=== PATIENT | male | born 1985 | race Hispanic/Latino ===

== ENCOUNTER 2016-12-09 19:20 | Emergency (ER) | payer OTHER ==
[2016-12-09 19:25] VITALS: BP 118/66; PULSE 78; RESP 18; TEMP 98.6; O2SAT 99
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
== END 2016-12-09 20:32 | disposition home or self-care (01) ==
LOC: H.ER 19:20
DX: T15.01XA Foreign body in cornea, right eye, initial encounter (principal)

== ENCOUNTER 2017-11-02 22:10 | Observation (INO) | payer OTHER ==
--- NOTE | 2017-11-02 22:53 | ED PDOC ---
Lower Extremity Pain/Injury <Sly Marsh - Last Filed: 11/03/17 06:32> Chief Complaint (Provider): Right Ankle Injury History Per: Patient History/Exam Limitations: no limitations Onset/Duration Of Symptoms: Mins (just SENIOR IT ASSISTANT) Pain Scale Rating Of: 10 Additional Complaint(s): Brodie Desir is a 32 year old male, with no significant past medical history , presents to the emergency department for evaluation of right ankle pain onset just prior to arrival. Patient reports he was playing basketball when he rolled his right ankle over the basketball, he noticed his momentum was going forward but his leg got stuck behind him when he fell. He reports that he felt a snap and heard a pop to the affected area. He rates the pain a 10/10 and states it's localized to the ankle. He took no medications prior to arrival. No prior ankle injury. He denies any head injury, LOC or other complaints at this time. PMD: Halle Pope <Laura More - Last Filed: 11/06/17 03:01> Time Seen by Provider: 11/02/17 22:18 Chief Complaint (Nursing): Lower Extremity Problem/Injury Past Medical History Vital Signs: Last Vital Signs Temp 98.9 F 11/02/17 23:16 Pulse 73 11/03/17 00:48 Resp 10 L 11/03/17 00:48 BP 132/60 11/03/17 00:48 Pulse Ox 98 11/03/17 06:19 <Sly Marsh - Last Filed: 11/03/17 06:32> Reviewed: Historical Data, Nursing Documentation, Vital Signs Vital Signs: Last Vital Signs Temp 101.4 F H 11/02/17 22:14 Pulse 66 11/02/17 22:14 Resp 18 11/02/17 22:14 BP 131/71 11/02/17 22:14 Pulse Ox 98 11/02/17 22:14 - Medical History PMH: No Chronic Diseases - Surgical History Surgical History: No Surg Hx - Family History Family History: States: Unknown Family Hx - Social History Current smoker - smoking cessation education provided: Yes (once a month) Alcohol: Social Drugs: Cannabis (social) <Laura More - Last Filed: 11/06/17 03:01> - Home Medications Home Medications: Ambulatory Orders Medication Instructions Recorded Polymyxin/Trimethoprim Sulfate 1 - 2 drop OD BID #1 bottle 12/09/16 [Polytrim Ophth Soln] Ibuprofen [Motrin Tab] 800 mg PO Q8 PRN #21 tab 11/03/17 oxyCODONE/Acetaminophen [Percocet 1 ea PO Q6 PRN #12 tab 11/03/17 5/325 mg Tab] - Allergies Allergies/Adverse Reactions: Allergies Allergy/AdvReac Type Severity Reaction Status Date / Time No Known Allergies Allergy Verified 12/09/16 19:22 Review of Systems ROS Statement: Except As Marked, All Systems Reviewed And Found Negative Musculoskeletal: Positive for: Foot Pain (right ankle) <Laura More - Last Filed: 11/06/17 03:01> Physical Exam - Reviewed Nursing Documentation Reviewed: Yes Vital Signs Reviewed: Yes - Physical Exam Comments: GENERAL APPEARANCE: Patient is awake, alert, oriented x 3, in moderate painful distress. SKIN: Warm, dry; (-) cyanosis. CHEST AND RESPIRATORY: (-) rales, (-) rhonchi, (-) wheezes, (-) rub; breath sounds equal bilaterally. Respirations even and nonlabored. HEART AND CARDIOVASCULAR: (-) irregularity LOWER EXTREMITY: Ankle: Large effusion to right ankle with noticeable deformity and faint ecchymosis to anterior, lateral and medial aspects. Diffuse tenderness of the ankle; (+) No ROM (+) superficial abrasion to anterior ankle. Knee, calf and foot: (-) injury and tenderness. No proximal lower leg tenderness. CARDIOVASCULAR: (+) distal pulse. NEUROLOGIC: (+) distal sensation. <Laura More - Last Filed: 11/06/17 03:01> - Laboratory Results Result Diagrams: 11/03/17 12:12 11/03/17 12:12 - ECG O2 Sat by Pulse Oximetry: 98 (RA) Pulse Ox Interpretation: Normal <Laura More - Last Filed: 11/06/17 03:01> Medical Decision Making Medical Decision Making: Time: 22:15 Initial Impression: acute right ankle pain probable fracture +/- Dislocation Initial Plan: --Morphine 2 mg IVP --Zofran Inj 4 mg IVP --Ankle right 3 views routine [RAD] --Reevaluation 2250 Ankle XR: (+) oblique, displaced distal fibula fracture (+) syndesmotic injury ( ?) malalignment of tibia/talus Right Tib/FIb XR ordered. Consult placed to podiatry. Case discussed wit podiatry resident, Teodora Rodriguez, who is agreeable to evaluation in ED. 2305 Tib/Fib XR: (+) oblique, displaced distal fibula fracture. Pending podiatry evaluation. 2315 Podiatry at bedside. See consult note. Repeat temp: 98.9 2345 Consent obtained for conscious sedation to reduce fracture. 0100 Reduction performed by podiatry and splint placed with Argenis FERRARO and ED MD Marsh at bedside. 350mg Propofol used for sedation. Post reduction films demonstrate better alignment of fracture. 0115 Dilaudid 2mg IVP administered. 0245 Lower extremity NV intact with splint in place. Patient sleeping comfortably on re-evaluation. 0500 Patient supplied with crutches and instructed on crutch walking. Patient able to crutch walk through ED however still reporting persistent, uncontrolled pain. Toradol 30mg IVP administered. On exam, patient remains AAOx3; Lungs clear to auscultation, cardiac RRR, repeat neuro exam shows no focal findings. VSS. 0550 Patient offered observation to med/surg for pain management and accepted at this time. Morphine 4mg IVP and Zofran 4mg IVP ordered. Arrangements made for admission for obs med/surg. Consult placed to Dr Andrew, med on-call. [address] Andrew, agreeable to admission at this time. Podiatry made aware of admission at this time. Dr Andrew recommends anesthesiology consult. Case discussed with Dr Wooten, anesthesiology operations manager. ----- Scribe Attestation: Documented by Neftali Dacosta, acting as a scribe for Laura More PA-C. Provider Scribe Attestation: All medical record entries made by the Scribe were at my direction and personally dictated by me. I have reviewed the chart and agree that the record accurately reflects my personal performance of the history, physical exam, medical decision making, and the department course for this patient. I have also personally directed, reviewed, and agree with the discharge instructions and disposition. <Laura More - Last Filed: 11/06/17 03:01> Disposition <Sly Marsh - Last Filed: 11/03/17 06:32> - Patient ED Disposition Is Patient to be Admitted: Yes Counseled Patient/Family Regarding: Studies Performed, Diagnosis, Need For Followup - Disposition Disposition Time: 06:00 - Pt Status Changed To: Hospital Disposition Of: Observation (med/surg) - POA Present On Arrival: Falls Or Trauma <Laura More - Last Filed: 11/06/17 03:01> - Clinical Impression Clinical Impression: Ankle fracture, Ankle pain, Fracture of distal fibula - Disposition Condition: FAIR Anesthesia History/Assessment - Medical History/Assessment Cardiac History: Normal Pulmonary: Normal Renal: Normal Gastrointestinal: Normal Hematological: Normal Endocrine: Normal Neuro History: Normal - Airway Mallampati Classification: II Teeth:: normal dentition - Evaluation Physical Status: P1 Anesthesia Plan: Deep Sedation Pt Evaluated/Appropriate Candidate for Anesthesia Planned: Yes Anesthesia Consent Complete & Signed: Yes <Sly Marsh - Last Filed: 11/03/17 06:32>
--- NOTE | 2017-11-03 00:09 | CP.PCM.CON ---
History of Present Illness - History of Present Illness History of Present Illness: Consult Note for Dr. Vernon: 32 yo male patient, with no significant PMHx, seen and evaluated for right ankle pain. Patient states that he was playing basketball a few hours ago when he was running and rolled his ankle over the basketball. The ankle rolled backwards and he immediately was unable to weightbear; he was then brought to the emergency department. He is currently in 8/10 pain and denies any numbness or paresthesias to the right lower extremity. Patient is accompanied by his dad and girlfriend at bedside. Patient denies N/V/F/SOB/CP. PMHx: Denies PSHx: Denies ALL: NKDA Review of Systems - Review of Systems Review of Systems: As per HPI Past Patient History - Past Social History Smoking Status: Unknown If Ever Smoked - PSYCHIATRIC Hx Substance Use: No - ANESTHESIA Hx Anesthesia: No Meds Home Medications: Home Medication List Medication Instructions Recorded Confirmed Type Ibuprofen [Motrin Tab] 800 mg PO Q8 PRN #21 tab 11/03/17 Rx oxyCODONE/Acetaminophen [Percocet 1 ea PO Q6 PRN #12 tab 11/03/17 Rx 5/325 mg Tab] Allergies/Adverse Reactions: Allergies Allergy/AdvReac Type Severity Reaction Status Date / Time No Known Allergies Allergy Verified 12/09/16 19:22 Physical Exam - Constitutional Appears: Well, Non-toxic - Head Exam Head Exam: ATRAUMATIC, NORMOCEPHALIC - Extremities Exam Additional comments: RLE focused exam: Vascular: DP 2/4, PT 1/4, CFT <3 seconds to all 5 digits, radha-malleolar edema noted to right ankle, TG WNL to RLE Ortho: Gross lateral dislocation of the foot in relation to the ankle joint. Tenderness to palpation circumfrentially to ankle joint. Patient able to wiggle toes Neuro: Gross and protective sensation intact to right lower extremity Derm: Superficial abrasion noted to dorsal aspect of right ankle, no open fracture noted, no clinical signs of infection, no erythema noted, no ecchymosis noted - Neurological Exam Neurological exam: Alert, Oriented x3 - Psychiatric Exam Psychiatric exam: Normal Affect, Normal Mood Results - Vital Signs Recent Vital Signs: Last Vital Signs Temp 98.9 F 11/02/17 23:16 Pulse 66 11/02/17 22:14 Resp 18 11/02/17 22:14 BP 131/71 11/02/17 22:14 Pulse Ox 98 11/02/17 23:52 Assessment & Plan - Assessment and Plan (Free Text) Assessment: 32 yo male patient, with no significant PMHx, seen and evaluated for right dislocated ankle with fibular fracture Plan: Patient seen and evaluated with all questions and concerns addressed Patient plan discussed in detail with Dr. Vernon Right ankle and tib-fib x-rays taken and reviewed; dislocated right ankle with displaced fibular fracture Conscious sedation administered by ER doctor and a closed reduction of the right ankle was performed Post-reduction x-rays taken and reviewed Patient placed in posterior splint and instructed to remain non-weightbearing with crutches Patient instructed to ice and elevate right lower extremity Patient to follow up in Dr. Vernon's office Thank you for the consult and for allowing us to partake in the care of this patient - Date & Time Date: 11/02/17 Time: 22:50
[2017-11-03] MEDS ORDERED: Propofol 10 mg/ml 1,000 MG/100 ML VIAL ONE (00:22)
[2017-11-03] MEDS ORDERED: Propofol 10 mg/ml Inj (20 ML) IV ONE ×3 (00:27→01:15)
[2017-11-03] MEDS ORDERED: Morphine 4 MG/ML VIAL ONE (06:12)
--- NOTE | 2017-11-03 06:44 | CP.PCM.CON ---
History of Present Illness - History of Present Illness History of Present Illness: 32 yo male S/P closed reduction of right ankle fracture/dislocation, still complains of pain despite getting morphine 4mg IV. From PS=8-9/10 down to PS=7/ 10. Past Patient History - Past Social History Alcohol: Social Drugs: Cannabis (social) - PSYCHIATRIC Hx Substance Use: No - ANESTHESIA Hx Anesthesia: No Meds Home Medications: Home Medication List Medication Instructions Recorded Confirmed Type Ibuprofen [Motrin Tab] 800 mg PO Q8 PRN #21 tab 11/03/17 Rx oxyCODONE/Acetaminophen [Percocet 1 ea PO Q6 PRN #12 tab 11/03/17 Rx 5/325 mg Tab] Allergies/Adverse Reactions: Allergies Allergy/AdvReac Type Severity Reaction Status Date / Time No Known Allergies Allergy Verified 12/09/16 19:22 Results - Vital Signs Recent Vital Signs: Last Vital Signs Temp 98.9 F 11/02/17 23:16 Pulse 73 11/03/17 00:48 Resp 10 L 11/03/17 00:48 BP 132/60 11/03/17 00:48 Pulse Ox 98 11/03/17 06:19 Assessment & Plan - Assessment and Plan (Free Text) Assessment: S/P close reduction of right ankle dislocation with distal fibular fracture. Right ankle pain. Plan: Will recommend shifting to oral analgesics like: Percocet 1 tab po Q6H prn for PS=5-7/10 and/or 2 tabs po Q6H prn for PS>7/10. Motrin or Ibuprofen for PS<5/10. Will follow up on patient during admission.
--- NOTE | 2017-11-03 08:29 | RAD ---
Date of service: 11/02/2017 PROCEDURE: Right Ankle Radiographs. HISTORY: basketball injury, joint pain COMPARISON: None FINDINGS: BONES: The talus is subluxed posterior laterally with marked widening of the medial and anterior mortise greater than 1 cm. Small fracture fragments are seen related to the posterior malleolus and there is a spiral fracture of the upper lateral malleolus displaced inferolaterally by 7-8 mm. Talar dome appears intact and unremarkable grossly. JOINTS: As above. SOFT TISSUES: Mild circumferential soft tissue edema is seen surrounding the ankle. OTHER FINDINGS: None. IMPRESSION: Fracture subluxation on the posterior and lateral malleoli with the talus subluxed posterior laterally.
--- NOTE | 2017-11-03 08:31 | RAD ---
Date of service: 11/02/2017 PROCEDURE: Radiographs of the right tibia and fibula. HISTORY: r/o proximal frac COMPARISON: None available TECHNIQUE: Frontal and lateral views obtained. FINDINGS: BONES: The lateral malleolus and posterior malleolar fractures identified possibly the anterior malleolus as well. Please separate right ankle radiograph evaluation also performed 11/02/2017. JOINT SPACES: Unremarkable appearing knee articulation. Please see separate ankle discussion regarding subluxation. OTHER FINDINGS: None. IMPRESSION: Proximal to mid tibia and fibula unremarkable. Distal fibular and tibial fractures as per separate ankle report 11/02/2017 as well as tibiotalar subluxation.
--- NOTE | 2017-11-03 08:34 | RAD ---
Date of service: 11/03/2017 PROCEDURE: Right Ankle Radiographs. HISTORY: right dislocated ankle COMPARISON: None FINDINGS: BONES: Lateral malleolar spiral fracture reduced adequately as well as tibiotalar subluxation. Medial ankle mortise reduced but still somewhat widened to 8 mm. JOINTS: As above. SOFT TISSUES: Moderate circumferential soft tissue edema. OTHER FINDINGS: None. IMPRESSION: Reduction in prominent subluxation at the tibiotalar joint with significant residual widening of the medial mortise up to 8 mm. Spiral fracture lateral malleolus reduced. Minimal chip or avulsion fractures possibly remaining in the tibiotalar joint though this is difficult to confirm in the frontal view. Please see lateral view.
--- NOTE | 2017-11-03 08:36 | RAD ---
Date of service: 11/03/2017 PROCEDURE: Right Ankle Radiographs. HISTORY: right perlita dislocation, post reduction COMPARISON: None FINDINGS: BONES: Cast obscures fine bony detail. Reduced tibiotalar subluxation improved with 7 mm widening of the medial mortise remaining. Fibular fracture remains reduced. No new fracture appreciable otherwise. Posterior malleolar fracture fragments are not clearly identified on the current study. Soft tissue edema is seen surrounding the ankle joint circumferentially. JOINTS: As above. SOFT TISSUES: As above. OTHER FINDINGS: None. IMPRESSION: Residual widening of the medial mortise as per above with reduction otherwise adequate. No new fracture in the interval. Lateral malleolar fracture unchanged. Cast obscures fine bone and soft-tissue detail.
[2017-11-03] MEDS ORDERED: ceFAZolin 2 GM in Sodium Chloride 0.9% 100 ML IVPB ONE (11:53)
[2017-11-03] MEDS ORDERED: Bupivacaine 0.5% Inj(30mL) IJ ONE (11:53)
[2017-11-03] MEDS ORDERED: Lidocaine 1% Inj (20ml) IJ ONE (11:53)
[2017-11-03] MEDS ORDERED: Sodium Chloride 0.9% 1,000 ML IV SCH (12:00)
--- NOTE | 2017-11-03 12:09 | CP.PCM.PN ---
Subjective - Date & Time of Evaluation Date of Evaluation: 11/03/17 Time of Evaluation: 12:06 - Subjective Subjective: Podiatry progress note for Dr. Vernon, 32 yo male patient with no significant Pmhx seen and evaluated for right dislocated ankle with fibular fracture. Patients right ankle was closed reduced last night, pain is not controlled with analgesics. Patient is aware of his surgery today, ORIF of the right ankle. Patient states he had a few cookies and water in the morning, however has not had anything to eat or drink after. Patients splint/dressing is clean, dry and intact. Rates his pain 7/10 at this time. Patient denies f/n/v/sob. Objective - Vital Signs/Intake and Output Vital Signs (last 24 hours): Temp Pulse Resp BP Pulse Ox 98.5 F 54 L 19 115/67 98 11/03/17 10:05 11/03/17 10:05 11/03/17 10:05 11/03/17 10:05 11/03/17 10:05 - Medications Medications: Current Medications Hydromorphone HCl (Dilaudid) 2 mg IVP Q4 PRN PRN Reason: Pain, severe (8-10) Last Admin: 11/03/17 09:00 Dose: 2 mg Cefazolin Sodium 2 gm/ Sodium (Chloride) 100 mls @ 100 mls/hr IVPB ONCE ONE PRN Reason: Protocol Stop: 11/03/17 12:52 Sodium Chloride (Sodium Chloride 0.9%) 1,000 mls @ 0 mls/hr IV .Q0M VAMSI PRN Reason: As Directed Stop: 11/04/17 11:54 - Constitutional Appears: Well, Non-toxic, No Acute Distress - Head Exam Head Exam: ATRAUMATIC, NORMOCEPHALIC - Extremities Exam Additional comments: RLE focused exam: Vascular: DP 2/4, PT 1/4, CFT <3 seconds to all 5 digits, radha-malleolar edema noted to right ankle, TG WNL to RLE Ortho: Gross lateral dislocation of the foot in relation to the ankle joint. Tenderness to palpation circumferentially to ankle joint. Patient able to wiggle toes Neuro: Gross and protective sensation intact to right lower extremity Derm: Superficial abrasion noted to dorsal aspect of right ankle, no open fracture noted, no clinical signs of infection, no erythema noted, no ecchymosis noted - Neurological Exam Neurological Exam: Alert, Awake, Oriented x3 - Psychiatric Exam Psychiatric exam: Normal Affect, Normal Mood - Skin Skin Exam: Normal Color Assessment and Plan - Assessment and Plan (Free Text) Assessment: 32 yo male patient, with no significant PMHx, seen and evaluated for right dislocated ankle with fibular fracture Plan: Pt was seen and examined at bedside Pt NPO status was confirmed, patient last ate around 8 am- okay per anesthesiologist Dr Nobles All pre-op testing and clearance in chart Pt has exhausted all conservative treatment at this time and is opting for surgical intervention Pt was explained procedure and post-operative course All pt's questions were answered to satisfaction No guarantees were made Pt understands all risks, benefits and complications of procedure Pt will follow-up with Dr. Vernon within 1 week of surgery in his office.
[2017-11-03 12:16] LABS: BASO % 0.4 % (0.0-2.0); EOS # 0.2 K/uL (0.0-0.7); EOS % 2.8 % (0.0-4.0); HEMOGLOBIN 14.5 g/dL (12.0-18.0); LYMPH # 2.9 K/uL (1.0-4.3); MEAN CELL VOLUME 91.6 fl (80.0-94.0); MEAN CORPUSCULAR HEMOGLOBIN 31.6 pg (27.0-31.0); MEAN CORPUSCULAR HGB CONC 34.5 g/dL (33.0-37.0); MEAN PLATELET VOLUME 7.4 fl (7.2-11.7); MONO # 0.7 K/uL (0.0-0.8); MONO % 9.7 % (0.0-10.0); NEUT # 3.8 K/uL (1.8-7.0); NEUT % 49.1 % (50.0-75.0); NRBC % 0.1 % (0.0-0.0); RBC 4.6 Mil/uL (4.40-5.90); RED CELL DISTRIBUTION WIDTH 13.1 % (11.5-14.5); WHITE BLOOD COUNT 7.7 K/uL (4.8-10.8)
[2017-11-03] MEDS ORDERED: ceFAZolin IV 1 gm in Dextrose 2 GM/100 ML BAG IVPB ONE (12:30)
[2017-11-03 12:31] LABS: ALB/GLOB RATIO 1.5 (1.0-2.1); ALBUMIN 3.8 g/dL (3.5-5.0); ALT/SGPT 26 U/L (21-72); AST/SGOT 25 U/L (17-59); BLOOD UREA NITROGEN 16 mg/dl (9-20); CALCIUM 8.3 mg/dL (8.4-10.2); GFR NON-AFRICAN AMERICAN > 60
[2017-11-03 12:35] LABS: PROTHROMBIN TIME 11.2 Seconds (9.8-13.1)
--- NOTE | 2017-11-03 12:37 | CP.PCM.PN ---
Subjective - Date & Time of Evaluation Date of Evaluation: 11/03/17 Time of Evaluation: 11:55 - Subjective Subjective: Podiatry Progress Note for Dr. Vernon: 32 yo male seen and evaluated at bedside s/p right ankle closed reduction and fibular fracture (11/02/17) . Patient states that he is in a tremendous amount of pain and the pain medication has not helped since his ankle was reduced in the ED early this morning. After discussion with ED team, patient was admitted for observation secondary to uncontrolled pain. Patient denies N/V/F/SOB/CP. Objective - Vital Signs/Intake and Output Vital Signs (last 24 hours): Temp Pulse Resp BP Pulse Ox 98.5 F 54 L 19 115/67 98 11/03/17 10:05 11/03/17 10:05 11/03/17 10:05 11/03/17 10:05 11/03/17 10:05 - Medications Medications: Current Medications Hydromorphone HCl (Dilaudid) 2 mg IVP Q4 PRN PRN Reason: Pain, severe (8-10) Last Admin: 11/03/17 09:00 Dose: 2 mg Cefazolin Sodium 2 gm/ Sodium (Chloride) 100 mls @ 100 mls/hr IVPB ONCE ONE PRN Reason: Protocol Stop: 11/03/17 12:52 Sodium Chloride (Sodium Chloride 0.9%) 1,000 mls @ 0 mls/hr IV .Q0M VAMSI PRN Reason: As Directed Stop: 11/04/17 11:54 - Labs Labs: 11/03/17 12:12 11/03/17 12:12 PT 11.2 Seconds (9.8-13.1) 11/03/17 12:12 INR 1.0 11/03/17 12:12 - Constitutional Appears: Well, Non-toxic - Head Exam Head Exam: ATRAUMATIC, NORMOCEPHALIC - Extremities Exam Additional comments: RLE focused exam: Vascular: DP 2/4, PT 1/4, CFT <3 seconds to all 5 digits, radha-malleolar edema noted to right ankle, TG WNL to RLE Ortho: Tenderness to palpation circumferentially to ankle joint. Patient able to wiggle toes. No pain upon calf compression. Neuro: Gross and protective sensation intact to right lower extremity Derm: Posterior splint left clean, dry, and intact - Neurological Exam Neurological Exam: Alert, Awake, Oriented x3 - Psychiatric Exam Psychiatric exam: Normal Affect, Normal Mood Assessment and Plan - Assessment and Plan (Free Text) Assessment: 32 yo male seen and evaluated at bedside s/p right ankle closed reduction () and fibular fracture. Plan: Patient seen and evaluated at bedside with Dr. Vernon Chart, labs, vitals reviewed Urgent: Plan to take patient to OR today. Patient has severe pain and we recommend immediate ORIF and exploration at this time NPO since 8am Patient to leave posterior splint clean, dry, and intact Remain non-weightbearing with crutches to right lower extremity Podiatry will continue to follow
[2017-11-03 12:38] LABS: PARTIAL THROMBOPLASTIN TIME 32.2 Seconds (25.6-37.1)
[2017-11-03] MEDS ORDERED: Propofol 10 mg/ml Inj (20 ML) ONE (13:01)
[2017-11-03] MEDS ORDERED: Rocuronium 10 mg/ml (5 ml) ONE (13:01)
[2017-11-03] MEDS ORDERED: Succinylcholine 200 mg/10 ml Inj IV ONE (13:01)
--- NOTE | 2017-11-03 13:10 | CP.PCM.HP ---
History of Present Illness - History of Present Illness History of Present Illness: 32 YR OLD MALE WHO FRACTURED HIS R ANKLE WHILE PLAYING BASKETBALL.STILL IN SEVERE DISTRESS FROM PAIN UNREMARKABLE MEDICAL HISTORY SCHEDULED FOR PODIATRY SURGERY TODAY. Present on Admission - Present on Admission Any Indicators Present on Admission: No Past Patient History - Past Medical History & Family History Past Medical History?: No - Past Social History Smoking Status: Never Smoked - MUSCULOSKELETAL/RHEUMATOLOGICAL Hx Falls: No - PSYCHIATRIC Hx Substance Use: No - ANESTHESIA Hx Anesthesia: No Meds Home Medications: Home Medication List Medication Instructions Recorded Confirmed Type Ibuprofen [Motrin Tab] 800 mg PO Q8 PRN #21 tab 11/03/17 Rx oxyCODONE/Acetaminophen [Percocet 1 ea PO Q6 PRN #12 tab 11/03/17 Rx 5/325 mg Tab] Allergies/Adverse Reactions: Allergies Allergy/AdvReac Type Severity Reaction Status Date / Time No Known Allergies Allergy Verified 12/09/16 19:22 Physical Exam - Constitutional Appears: In Acute Distress - Head Exam Head Exam: ATRAUMATIC, NORMAL INSPECTION, NORMOCEPHALIC - Eye Exam Eye Exam: EOMI, Normal appearance, PERRL Pupil Exam: NORMAL ACCOMODATION, PERRL - ENT Exam ENT Exam: Mucous Membranes Moist, Normal Exam - Neck Exam Neck exam: Positive for: Normal Inspection - Respiratory Exam Respiratory Exam: Clear to Auscultation Bilateral, NORMAL BREATHING PATTERN - Cardiovascular Exam Cardiovascular Exam: REGULAR RHYTHM - GI/Abdominal Exam GI & Abdominal Exam: Normal Bowel Sounds, Soft. absent: Tenderness - Rectal Exam Rectal Exam: NORMAL INSPECTION - Extremities Exam Extremities exam: Positive for: normal inspection, tenderness Additional comments: R FOOT AND ANKLE DRESSED AND SPLINTED - Back Exam Back exam: NORMAL INSPECTION - Neurological Exam Neurological exam: Alert, CN II-XII Intact, Normal Gait, Oriented x3, Reflexes Normal - Psychiatric Exam Psychiatric exam: Normal Affect, Normal Mood - Skin Skin Exam: Dry, Intact, Normal Color, Warm Results - Vital Signs Recent Vital Signs: Last Vital Signs Temp 98.5 F 11/03/17 10:05 Pulse 54 L 11/03/17 10:05 Resp 19 11/03/17 10:05 BP 115/67 11/03/17 10:05 Pulse Ox 98 11/03/17 10:05 - Labs Result Diagrams: 11/03/17 12:12 09/14/18 12:12 Labs: Laboratory Results - last 24 hr 11/03/17 11/03/17 11/03/17 12:12 12:12 12:12 WBC 7.7 RBC 4.60 Hgb 14.5 Hct 42.1 MCV 91.6 MCH 31.6 H MCHC 34.5 RDW 13.1 Plt Count 184 MPV 7.4 Neut % (Auto) 49.1 L Lymph % (Auto) 38.0 Davidson % (Auto) 9.7 Eos % (Auto) 2.8 Baso % (Auto) 0.4 Neut # (Auto) 3.8 Lymph # (Auto) 2.9 Davidson # (Auto) 0.7 Eos # (Auto) 0.2 Baso # (Auto) 0.0 PT 11.2 INR 1.0 APTT 32.2 Sodium 137 Potassium 4.5 Chloride 104 Carbon Dioxide 28 Anion Gap 10 BUN 16 Creatinine 0.9 Est GFR ( Amer) > 60 Est GFR (Non-Af Amer) > 60 Random Glucose 100 Calcium 8.3 L Total Bilirubin 0.6 AST 25 ALT 26 Alkaline Phosphatase 44 Total Protein 6.4 Albumin 3.8 Globulin 2.5 Albumin/Globulin Ratio 1.5 Assessment & Plan - Assessment and Plan (Free Text) Assessment: R ANKLE FRACTURE INTRACTABLE PAIN Plan: PODIATRY SURGERY TODAY
[2017-11-03] MEDS ORDERED: Lactated Ringer's 1,000 ML IV ONE ×2 (13:25→16:00)
[2017-11-03] MEDS ORDERED: Midazolam 2 MG/2 ML VIAL ONE (13:26)
--- NOTE | 2017-11-03 14:00 | PCM.ANESB7 ---
Adductor Canal Block - Adductor Canal Block Date of Procedure: 11/03/17 Anesthiologist: Sugar Pre-Procedure Diagnosis: Right fibula fracture Post-Procedure Diagnosis: Same Procedure Performed: Adductor Canal Block Right - Procedure Adductor Canal Block: The procedure was explained to the patient that it is for the post-operative pain management. Consent was obtained after a thorough discussion with the patient regarding the benefits and possible complications of local anesthetic adductor canal block of the femoral nerve. Standard monitors, as defined by the ASA, were applied to the patient. Time-out was held with the circulating nurse to confirm the appropriate block. Under general anesthesia, the patient was placed in supine position with and the operative leg was flexed slightly at the knee and externally rotated as needed, and was kept anatomically stable. The mid -thigh of the ___right lower extremity was exposed. The ultrasound transducer was then applied transversely along the medial aspect, about midway down the thigh and the femoral artery and vein were identified in appropriate relation with the sartorius muscle. At this time, the femoral nerve was visualized lateral to the femoral artery within the canal. After thorough identification, this area area was prepped with Chloroprep solution. At this point, a #22 gauge Stimuplex 4-inch needle was inserted in-plane in a snebkjw-ve-duyynu orientation, and advanced toward the femoral nerve. Advancement was performed carefully under direct ultrasound visualization. Nerve stimulator was used and appropriate muscle twitch was obtained at current of __0.4___MA. After negative aspiration, __2___cc of __0.25___% ___bupivicaine with 1:200,000 epinephrine was injected and this was followed with ___8___ cc of ___0.25____ % __bupivacaine with 1:200,000 epinephrine . Under ultrasound guidance the local anesthetics were observed spreading around the femoral nerve. The needle was removed intact. The patient tolerated the femoral nerve block well with stable vital signs and was prepared for subsequent surgery
--- NOTE | 2017-11-03 14:03 | PCM.ANESB2 ---
Popliteal Nerve Block - Popliteal Nerve Block Date of Procedure: 11/03/17 Anesthesiologist: Sugar Pre-Procedure Diagnosis: Right fibula fracture Post-Procedure Diagnosis: Same Procedure Performed: Popliteal Nerve Block Right - Procedure Popliteal Nerve Block: This procedure was explained to the patient that it is for post-operative pain management. Consent was obtained after a thorough discussion with the patient regarding the benefits and possible complications of local anesthetic block of the sciatic nerve at the popliteal level. The patient was brought to the operating room and standard monitors are applied. Time-out was held with the circulating nurse to confirm the correct surgery and the appropriate block. Under general anesthesia, patient's operative leg was gently raised and supported and the groove in between the biceps femoris and vastus lateralis muscles was carefully palpated. The skin approximately 8cm above the popliteal crease was then marked. The ultrasound transducer was then applied to the posterior thigh approximately 8cm above the popliteal crease in the transverse plane and the sciatic nerve before its division was visualized lateral to the popliteal artery and in between the bicep femoris and semimembranosus/ semitendinosus muscles. After identification, the lateral portion of the thigh was prepped with Chloraprep. At this point, a # 21 gauge Stimuplex insulated 4 inch needle was inserted into pre-marked area and advanced in a perpendicular direction. The needle was inserted above the ultrasound transducer in-plane towards the sciatic nerve in a dagqubr-sp-chrkjm direction. Needle advancement was performed carefully under direct ultrasound visualization. Nerve stimulator was used and dorsiflexion of the __right___ foot was elicited at a current of _0.4____ MA. After repeated negative aspiration, ___2__cc of _0.5____ % ____bupivacaine with 1:200,000 epinephrine was injected and this was flowed with __28____ cc of ___ 0.5___% ____bupivicaine with 1:200,000 epinephrine . Under ultrasound guidance the local anesthetics were observed surrounding sciatic nerve . The needle was removed intact and sterile dressing was applied. The patient tolerated the popliteal nerve block well with stable vital signs and was subsequently prepared for the surgery.
[2017-11-03] MEDS: Lactated Ringer's 1,000 ML IV SCH (14:20)
[2017-11-03] MEDS ORDERED: Neostigmine 1:1000 (1 mg/ml) Inj ONE (14:49)
[2017-11-03] MEDS ORDERED: Oxycodone/Acetaminophen 5/325 mg Tab PO PRN ×2 (14:50)
[2017-11-03] MEDS ORDERED: Sevoflurane - Inhalation Anesthetic Liq (250 ml) ONE (15:41)
[2017-11-03] MEDS ORDERED: Bacitracin Ointment 30 GM TUBE ONE (15:53)
--- NOTE | 2017-11-03 16:20 | PCM.SURG1 ---
Surgeon's Initial Post Op Note - Surgeon's Notes Surgeon: Dr. Vernon, DPM Visual Designer: Dr. Davidson PGY3, Dr. Ivan PGY3, Dr. Rodriguez PGY1 Type of Anesthesia: General Endo Anesthesia Administered By: Dr. Orozco Pre-Operative Diagnosis: Right fibular fracture with syndesmotic injury Operative Findings: See dictation. M: 3-0 Vicryl, 4-0 Vicryl, 4-0 Monocril, 3.0 Suture abhinav, plate, screws (see dictation). I: none Post-Operative Diagnosis: Same Operation Performed: Right fibular ORIF, syndesmotic repair, deltoid ligament repair Specimen/Specimens Removed: none Estimated Blood Loss: EBL {In ML}: 10 Blood Products Given: N/A Drains Used: No Drains Post-Op Condition: Good Date of Surgery/Procedure: 11/03/17 Time of Surgery/Procedure: 16:21
[2017-11-03] MEDS ORDERED: HYDROmorphone 0.5 mg/0.5 ml ISec IVP PRN (16:23)
[2017-11-03] MEDS ORDERED: DiphenhydrAMINE 50 mg/ml Inj IVP PRN (16:23)
[2017-11-03] MEDS ORDERED: Enoxaparin 40 mg Syringe SC SCH (16:30)
[2017-11-04] MEDS: Lactated Ringer's 1,000 ML IV SCH ×2 (00:30→08:52)
[2017-11-04 07:55] VITALS: BP 114/64; PULSE 67; RESP 19; TEMP 98.6
--- NOTE | 2017-11-04 09:53 | RAD ---
Date of service: 11/03/2017 PROCEDURE: Right Ankle Radiographs. HISTORY: s/p right ankle ORIF COMPARISON: 11/03/2017 FINDINGS: BONES: Three views of the right ankle were performed. Cast overlies the ankle limiting evaluation. Since the prior examination there has been interval ORIF of the right ankle with long cortical screw plate transfixing a fibular fracture. A cortical screw tract extends through the distal fibula and distal tibia with a small metallic fragment noted along the medial tibia. No ankle mortise widening is identified and there is improvement in the ankle mortise from prior x-ray. JOINTS: See above SOFT TISSUES: Mild soft tissue swelling OTHER FINDINGS: None. IMPRESSION: Status post ORIF right ankle fracture. Please see above.
[2017-11-04] MEDS ORDERED: Enoxaparin 40 mg Syringe SC SCH (10:30)
--- NOTE | 2017-11-04 10:43 | CP.PCM.DIS ---
Provider - Provider Date of Admission: 11/03/17 06:07 Attending physician: Pascual Andrew MD Time Spent in preparation of Discharge (in minutes): 30 Diagnosis - Discharge Diagnosis (1) Ankle fracture Status: Acute (2) Fracture of distal fibula Status: Acute Hospital Course - Lab Results Lab Results: Most Recent Lab Values WBC 7.7 K/uL (4.8-10.8) 11/03/17 12:12 RBC 4.60 Mil/uL (4.40-5.90) 11/03/17 12:12 Hgb 14.5 g/dL (12.0-18.0) 11/03/17 12:12 Hct 42.1 % (35.0-51.0) 11/03/17 12:12 MCV 91.6 fl (80.0-94.0) 11/03/17 12:12 MCH 31.6 pg (27.0-31.0) H 11/03/17 12:12 MCHC 34.5 g/dL (33.0-37.0) 11/03/17 12:12 RDW 13.1 % (11.5-14.5) 11/03/17 12:12 Plt Count 184 K/uL (130-400) 11/03/17 12:12 MPV 7.4 fl (7.2-11.7) 11/03/17 12:12 Neut % (Auto) 49.1 % (50.0-75.0) L 11/03/17 12:12 Lymph % (Auto) 38.0 % (20.0-40.0) 11/03/17 12:12 Amelia % (Auto) 9.7 % (0.0-10.0) 11/03/17 12:12 Eos % (Auto) 2.8 % (0.0-4.0) 11/03/17 12:12 Baso % (Auto) 0.4 % (0.0-2.0) 11/03/17 12:12 Neut # (Auto) 3.8 K/uL (1.8-7.0) 11/03/17 12:12 Lymph # (Auto) 2.9 K/uL (1.0-4.3) 11/03/17 12:12 Amelia # (Auto) 0.7 K/uL (0.0-0.8) 11/03/17 12:12 Eos # (Auto) 0.2 K/uL (0.0-0.7) 11/03/17 12:12 Baso # (Auto) 0.0 K/uL (0.0-0.2) 11/03/17 12:12 PT 11.2 Seconds (9.8-13.1) 11/03/17 12:12 INR 1.0 11/03/17 12:12 APTT 32.2 Seconds (25.6-37.1) 11/03/17 12:12 Sodium 137 mmol/l (132-148) 11/03/17 12:12 Potassium 4.5 MMOL/L (3.6-5.0) 11/03/17 12:12 Chloride 104 mmol/L (98-107) 11/03/17 12:12 Carbon Dioxide 28 mmol/L (22-30) 11/03/17 12:12 Anion Gap 10 (10-20) 11/03/17 12:12 BUN 16 mg/dl (9-20) 11/03/17 12:12 Creatinine 0.9 mg/dl (0.8-1.5) 11/03/17 12:12 Est GFR ( Amer) > 60 11/03/17 12:12 Est GFR (Non-Af Amer) > 60 11/03/17 12:12 Random Glucose 100 mg/dL (75-110) 11/03/17 12:12 Calcium 8.3 mg/dL (8.4-10.2) L 11/03/17 12:12 Total Bilirubin 0.6 mg/dl (0.2-1.3) 11/03/17 12:12 AST 25 U/L (17-59) 11/03/17 12:12 ALT 26 U/L (21-72) 11/03/17 12:12 Alkaline Phosphatase 44 U/L (38-126) 11/03/17 12:12 Total Protein 6.4 G/DL (6.3-8.2) 11/03/17 12:12 Albumin 3.8 g/dL (3.5-5.0) 11/03/17 12:12 Globulin 2.5 gm/dL (2.2-3.9) 11/03/17 12:12 Albumin/Globulin Ratio 1.5 (1.0-2.1) 11/03/17 12:12 - Hospital Course Hospital Course: SURGICAL REPAIR OF R ANKLE/TIB/FIB FRACTURE Discharge Exam - Head Exam Head Exam: ATRAUMATIC, NORMAL INSPECTION, NORMOCEPHALIC - Eye Exam Eye Exam: EOMI, Normal appearance, PERRL Pupil Exam: NORMAL ACCOMODATION, PERRL - GI/Abdominal Exam GI & Abdominal Exam: Normal Bowel Sounds - Rectal Exam Rectal Exam: NORMAL INSPECTION - Extremities Exam Extremities exam: tenderness Additional comments: R ANKLE--SURGICAL DRESSING IN PLACE - Neurological Exam Neurological exam: Alert, CN II-XII Intact, Normal Gait, Oriented x3, Reflexes Normal - Psychiatric Exam Psychiatric exam: Normal Affect, Normal Mood - Skin Skin Exam: Dry, Intact, Normal Color, Warm Discharge Plan - Discharge Medications Prescriptions: Ibuprofen [Motrin Tab] 800 mg PO Q8 PRN #21 tab PRN Reason: Pain, Moderate (4-7) oxyCODONE/Acetaminophen [Percocet 5/325 mg Tab] 1 ea PO Q6 PRN #12 tab PRN Reason: Pain, Severe (8-10) - Follow Up Plan Condition: FAIR Disposition: HOME/ ROUTINE Patient education suggested?: Yes Additional Instructions: The emergency medical care you received today was directed towards the acute presenting symptoms. If you were prescribed any medication, please fill it and give as directed. It may take several days for your symptoms to resolve. Return to the Emergency Department at any time if symptoms worsen, do not improve, or if any other problems arise. Please contact your doctor in 2 days for re-evaluation and follow up / or call one of the physicians/clinics you have been referred to that are listed on the Patient Visit Information form that is included in your discharge packet. Bring any paperwork you were given at discharge with you along with any medications to your follow up visit. Our treatment cannot replace ongoing medical care by a primary care provider (PCP) outside of the emergency department. KEEP SPLINT CLEAN, INTACT, IN PLACE, AND DRY. REST, ELEVATE EXTREMITY.
--- NOTE | 2017-11-04 14:29 | CP.PCM.PN ---
Subjective - Date & Time of Evaluation Date of Evaluation: 11/04/17 Time of Evaluation: 12:00 - Subjective Subjective: Podiatry Progress Note for Dr. Vernon: 32 yo male seen and evaluated at bedside 1 day s/p right ankle ORIF (11/03/17) . Patient was setting in his bed comfortably and not in acute distress. Patient is AAO X 3. Patient states that he doesn't have any pain currently as the nerve block still working. Patient states that he currently doesn't have any shivering like yesterday. Patient denies any overnight N/V/F/SOB/CP. Patient denies any other pedal complaint at this time. Patient states that he uses the spirometry since yesterday as instructed to him. Objective - Vital Signs/Intake and Output Vital Signs (last 24 hours): Temp Pulse Resp BP Pulse Ox 98.6 F 67 19 114/64 99 11/04/17 07:55 11/04/17 07:55 11/04/17 07:55 11/04/17 07:55 11/04/17 07:55 - Labs Labs: 11/03/17 12:12 11/03/17 12:12 PT 11.2 Seconds (9.8-13.1) 11/03/17 12:12 INR 1.0 11/03/17 12:12 APTT 32.2 Seconds (25.6-37.1) 11/03/17 12:12 - Constitutional Appears: Well, Non-toxic, No Acute Distress - Head Exam Head Exam: ATRAUMATIC, NORMOCEPHALIC - Extremities Exam Additional comments: RLE focused exam: Patient dressing left intact Vascular: Cap refill < 3 sec in all digits MSK: Patient could perform active ROM with his toes. Neuro: Gross and protective sensation intact to right lower extremity Derm: Posterior splint left clean, dry, and intact - Neurological Exam Neurological Exam: Alert, Awake, Oriented x3 - Psychiatric Exam Psychiatric exam: Normal Affect, Normal Mood Assessment and Plan - Assessment and Plan (Free Text) Assessment: 32 yo male seen and evaluated at bedside 1 day s/p right ankle ORIF (11/03/17). Plan: Patient seen and evaluated at bedside Plan discussed in details with attending Dr. Vernon Chart, labs, vitals reviewed; Afebrile, No leukocytosis Discussed with the patient the future plan of his treatment. Patient instructed to leave posterior splint clean, dry, and intact Patient educated RICE protocol. Rx; Percocet 325/5 mg tab PO Q6 PRN Lovenox 40 mg SC injection Q24 Rx; Keflex 500 mg tab TID. Remain [id number] with crutches to right lower extremity Instructed the nurse to teach the patient the lovenox injection. PT Saw the patient and trained him how to use crutches. Patient expressed verbal understanding. Patient will be discharged home today. Patient will follow up at Dr. Vernon office.
[2017-11-06 02:57] VITALS: O2SAT 98
--- NOTE | 2017-11-06 08:01 | OP ---
PROCEDURE DATE: 11/03/2017 PREOPERATIVE DIAGNOSES: 1. Right fibular fracture. 2. Right ankle syndesmotic rupture. 3. Right ankle deltoid rupture. POSTOPERATIVE DIAGNOSES: 1. Right fibular fracture. 2. Right ankle syndesmotic rupture. 3. Right ankle deltoid rupture. PROCEDURE PERFORMED: 1. Right fibula open reduction and internal fixation. 2. Right syndesmotic repair. 3. Right ankle deltoid repair. SURGEON: Noel Vernon DPM. ROLL WRAPPER: Alla Davidson DPM, PGY-3; Jaya Ivan DPM, PGY-3; Teodora New, PGY-1. ANESTHESIOLOGIST: Dr. Orozco. TYPE OF ANESTHESIA: General popliteal block. INDICATIONS: The patient is a 32-year-old male with the above mentioned diagnosis. The patient is being treated by Dr. Vernon. The patient sustained a right fibular fracture the day before and a close reduction was attempted in the ED; and the patient has lot of pain at this time. The patient understands all the risk, benefits, and possible complications for proposed procedure, and all of them have been explained to the patient at length. The patient verbalized understanding and wishes to proceed. All questions were answered. No guarantees were given nor implied. Consent was signed and n.p.o. status was confirmed prior to bringing the patient to the operating room. OPERATIVE PROCEDURE: The patient was brought into the operating room, placed on the operating room table in a supine position. A well-padded pneumatic thigh tourniquet was applied to the patient's right thigh. Once general anesthesia was achieved, right foot was then prepped and draped in the usual sterile manner and the procedure began. PROCEDURE 1: Right fibular open reduction internal fixation. At this time, attention was directed to the lateral aspect of the right ankle where the fibular fracture is present. At this time, with the use of #15 blade, approximately 9 cm length linear incision was created over the lateral aspect of the fibula of the right lower extremity. Incision was carried from proximal to distal at the level of the malleolus. Care was taken to identify and retract all vital neurovascular structures. All bleeders were cauterized and ligated as necessary. The initial incision was carried down to the dermal layers of the periosteum with adipose tissue dissection. At this time, with the use of freer and elevator, the periosteum was dissected free of osteal attachment, and the fibular fracture was noted to be crossing in oblique nature. Upon dissection of the surrounding soft tissue from the fracture site, the fracture fragment was distracted and a bone clamp was utilized to clamp the fracture in a corrected position. the fibular fracture, a 3.5 cortical screw was utilized for interfragmentary compression. At this time, the fibular plate was placed over the fracture site and the plate was fixated with 2-0 wire. Upon completion of that, the bone clamp was removed. It was noted that good fixation had been achieved across the fracture site. At this time, the Synthes 5 hole distal fibular plate was used on the lateral aspect of the fibula which was fixated with the use of Synthes 3.5 cortical screws and 2.5 looking screw, 9 screws utilized at that time. Upon completion of the fibular reduction fixation, the surgical side was then irrigated with copious amount of normal sterile saline. PROCEDURE 2: Right ankle syndesmotic repair. Next, utilizing intraoperative fluoroscopy, a guide wire from the passed through the lateral aspect of the fibular plate, approximately 1.5 cm above the ankle joint ____ of the fibula to the medial and lateral cortices of the fibula and anterior medial aspect of the portions of right ankle. Proper positioning of the guidewire was verified using intraoperative fluoroscopy. Next, a system was placed over the guidewire and the medical and lateral cortices of the fibular were dropped, and the medial and lateral cortices of the fibular were dropped. The drill bit and the guide wire was then removed from the surgical field. Next, the needle from the ____ passed through the lateral and medical cortices above the fibula and tibia and extended to the medical aspect the patient right ankle. The needle was then cut placing the sutures in the medial and lateral using the sutures that crossed against the medical aspect of the tibial cortex and the lateral aspect of the fibula. Proper positing of the button was verified utilizing intraoperative fluoroscopy. The extra sutures were then cut and removed from the surgical site. At this time, the surgical site was irrigated with copious amount of normal sterile saline. Next, with the use of #3-0 Vicryl, the periosteum tissue was reapproximated. Next with the use of 4-0 Vicryl, the subcutaneous tissue was approximated; and lastly, with 4-0 Monocryl, the skin was reapproximated in subcuticular pattern and dressed with Steri-Strips. PROCEDURE 3: Right ankle deltoid ligament repair. Attention was then directed from the medial aspect of the right foot where the deltoid ligament was located. Utilizing a #15 blade, a curvilinear incision was created from superior to inferior, approximately 4 cm in length. The incision was deepened into the subcutaneous tissue with care being taken by identify and retract all vital neurovascular structures. All bleeders were then cauterized and ligated as necessary. Attention was then directed towards the deltoid ligament complex which was noted to be completed ruptured. Periosteum incision was made over the tibia, and a 2.5 drill was used to create two drill holes in the tibia. Next, two 3-0 SutureTak were tacked and inserted. Next, a deltoid complex was reapproximated using the Fiberwire from the SutureTak. Excellent repair was noted. The surgical site was then irrigated with copious amount of normal sterile saline. The subcutaneous tissue was then reapproximated with #3-0 Vicryl. The subcutaneous tissue was reapproximated with #4-0 Vicryl and subcuticular tissue was reapproximated with #4-0 Monocryl and dressed with Steri-Steps. Postoperative dressing included wet-to-dry, 4x4, Enrike, and a well padded below knee . POSTOPERATIVE CONDITION: The patient tolerated the anesthesia and procedure well with no apparent complications or complaints. The patient was escorted from operating room to the recovery room with vital signs stable and neurovascular structures intact. The patient will follow up with Dr. Vernon in his office on an outpatient basis. Alla Davidson DPM Noel Vernon DPM
== END 2017-11-04 12:30 | disposition home or self-care (01) ==
LOC: H.ER 22:10 → H.ERHOLD 11-03 06:07 → H.MEDSURG1 11-03 09:23
PROVIDERS: ADMIT Internal Medicine Pulmonary Disease; ATTEND Internal Medicine Pulmonary Disease
DX: S82.401A Unspecified fracture of shaft of right fibula, initial encounter for closed fracture (principal); F17.200 Nicotine dependence, unspecified, uncomplicated; S93.439A Sprain of tibiofibular ligament of unspecified ankle, initial encounter; X50.1XXA Overexertion from prolonged static or awkward postures, initial encounter; Y93.02 Activity, running
CPT/HCPCS: 27792; 36415; 64447; 73590; 73610; 80053; 85025; 85610; 85730; 96372; 96374; 96375; 96376; 97161; 99285; G0378; G8978; G8979; G8980; J0330; J0690; J1170; J1650; J1885; J2001; J2250; J2270; J2405; J2704; J2710; J3010; J7120